=== PATIENT | female | born 1965 | race Caucasian/White ===

== ENCOUNTER 2016-11-14 16:50 | Emergency (ER) | payer BC ==
--- NOTE | ~2016-11-14 | CR72 ---
[facility] A Service of [facility] RADIOLOGY TEXT RESULTS PATIENT: JOLLY ABARCA LOCATION: SED : 69 UNIT #: [id number] AGE: [address]: DUNG LOPEZ SEX: F ORDER DR: [id number] [place] [id number] E MR#: [id number] Acc #: [id number] NAME: JOLLY ABARCA. : 1965 SEX: F STUDY DATE/TIME: 11/14/2016 17:39 UNIT: SED ROOM: STUDY DESCRIPTION: CR Chest Single View Portable Attending Physician: Dung Lopez Aprn Ordering Physician: Dung Lopez Aprn Primary Care Physician: Madhav Benedict M.D. MEDICAL IMAGING REPORT This report is preliminary unless electronic signature is present. EXAM AP portable chest. DATE 11/14/2016 HISTORY 51-year-old female with cough and congestion for 4 days. COMPARISON None. FINDINGS Lung bases are partially obscured by body habitus. No acute airspace disease is seen. Heart size is normal. No pleural effusion or pneumothorax is identified. IMPRESSION No acute cardiopulmonary findings. Dictated by... Jolly Bernal M.D. THIS IS AN ELECTRONICALLY VERIFIED REPORT Jolly Bernal M.D. at 11/15/2016 2:02 PM TIGRE/muriel TD: 11/15/2016 00:08 JOB #: [id number] [facility] A Service of [facility] RADIOLOGY TEXT RESULTS PATIENT: JOLLY ABARCA LOCATION: SED : 69 UNIT #: [id number] AGE: [address]: DUNG LOPEZ SEX: F ORDER DR: MEDICAL IMAGING REPORT Page 1 of 1
[~2016-11-14 16:50] MED LIST: BP PILL; CELEXA PO; CERTAGEN PO; EFFEXOR75 MG PO; FELDENE20 MG PO; TUMS; ULTRAM PO; ZESTORETIC 20/11 TAB PO; [UNRECOGNIZED DRUG - OTHER] PO
== END 2016-11-14 18:20 | disposition home or self-care (01) ==
LOC: SED 16:50
DX: J06.9 Acute upper respiratory infection, unspecified (principal); I10 Essential (primary) hypertension; F17.210 Nicotine dependence, cigarettes, uncomplicated
CPT/HCPCS: 71010; 99284